=== PATIENT | female | born 1965 | race Caucasian/White ===

== ENCOUNTER 2016-10-11 10:43 | Outpatient (CLI) | payer OTHER | END 2016-10-11 11:56 | LOC: D.MAMMO 10:43 | DX: Z12.31 Encounter for screening mammogram for malignant neoplasm of breast (principal) ==

== ENCOUNTER → 2016-12-28 17:54 | Outpatient (CLI) | payer OTHER ==
[2016-12-30 06:14] LABS: FOLLICLE STIMULATING HORMONE 4.5 mIU/mL (()); LUTEINIZING HORMONE 5.5 mIU/mL (()); PROGESTERONE 0.1 ng/mL (())
== END | disposition home or self-care (01) ==
LOC: D.LABREF 17:54
PROVIDERS: Family Medicine
DX: N95.9 Unspecified menopausal and perimenopausal disorder (principal)

== ENCOUNTER → 2017-09-20 21:09 | Outpatient (CLI) | payer OTHER | END | disposition home or self-care (01) | LOC: D.MAMMO 11:30 | DX: Z12.31 Encounter for screening mammogram for malignant neoplasm of breast (principal) ==

== ENCOUNTER → 2017-10-19 19:36 | Outpatient (CLI) | payer OTHER | END | disposition home or self-care (01) | LOC: D.MAMMO 13:30 | DX: R92.8 Other abnormal and inconclusive findings on diagnostic imaging of breast (principal) ==

== ENCOUNTER 2018-12-13 09:00 | Outpatient (CLI) | payer OTHER | END 2018-12-13 10:00 | disposition home or self-care (01) | LOC: D.MAMMO 09:00 | PROVIDERS: ATTEND Family Medicine | DX: Z12.31 Encounter for screening mammogram for malignant neoplasm of breast (principal) ==